=== PATIENT | female | born 1950 | race Asian ===

== ENCOUNTER 2025-06-20 12:51 | Outpatient (CLI) | payer MEDICARE | END 2025-06-20 12:52 | disposition home or self-care (01) | LOC: SCSMRI 12:51 | PROVIDERS: ATTEND Family Medicine | DX: M54.16 Radiculopathy, lumbar region (principal); M48.061 Spinal stenosis, lumbar region without neurogenic claudication; M48.07 Spinal stenosis, lumbosacral region | CPT/HCPCS: 72148 ==